=== PATIENT | female | born 2000 | race Caucasian/White ===

== ENCOUNTER → 2018-02-28 13:51 | Outpatient (CLI) | payer MEDICAID, SELFPAY ==
[2018-02-28 17:18] LABS: Chlamydia Trachomatis by PCR Negative (Negative); Neisserai gonorrhoeae by PCR Negative (Negative); Probe Check PASS; Sample Adequacy Control PASS; Specimen Processing Control PASS
[2018-02-28 18:13] LABS: Probe Check PASS; Sample Adequacy Control PASS; Specimen Processing Control PASS; Trichomonas Vag DNA by PCR Negative (Negative)
== END ==
PROVIDERS: Visit Provider Obstetrics & Gynecology
DX: Z11.3 Encounter for screening for infections with a predominantly sexual mode of transmission (principal)
CPT/HCPCS: 87491; 87591; 87661

== ENCOUNTER → 2018-03-13 15:02 | Outpatient (CLI) | payer MEDICAID, SELFPAY ==
--- NOTE | 2018-03-13 15:05 | US_ITS ---
STUDY: ULTRASOUND OF THE FEMALE PELVIS - COMPLETE REASON FOR EXAM: Female, 17 years old. Left lower quadrant pain TECHNIQUE: Transabdominal and Transvaginal TECHNICAL QUALITY: Adequate. COMPARISON: None. FINDINGS: The uterus is anteverted and is in a midline position. The uterus measures 6.4 x 4.4 x 2.5 cm. Normal uterine cervix. The endometrium measures 2 mm in thickness, and is fluid distended. There is no demonstrated endometrial mass. There is no demonstrated myometrial mass. The right ovary is non-visualized. The left ovary is visualized. The left ovary measures 2.9 x 1.6 x 1.5 cm. There is no left ovarian cyst or ovarian mass. There is no visualized left adnexal mass or complex lesion. There is normal arterial and normal venous vascularity. There is no fluid in the cul-de-sac. US/Transvaginal Non- IMPRESSION: Small amount of fluid in the endometrial canal. Otherwise, normal sonographic appearance of the uterus. Normal left ovary with normal Doppler flow. Right ovary not visualized. Electronically Signed: Srini Gill, at 19:29 EDT Tel , Service support ,
== END ==
PROVIDERS: Family Provider Nurse Practitioner Family; PCP Nurse Practitioner Family; Visit Provider Obstetrics & Gynecology
DX: R10.2 Pelvic and perineal pain (principal)
CPT/HCPCS: 76830; 93976

== ENCOUNTER 2018-06-20 07:47 | Day surgery (SDC) | payer MEDICAID, SELFPAY ==
[2018-06-20] VITALS (7 sets, daily range): BP systolic 107–122; BP diastolic 66–81; PULSE 75–102; RESP 14–16; TEMP 36.5–37.1; O2SAT 100; BMI 22.8
--- NOTE | 2018-06-20 | MISC_PTH ---
PATIENT: BRENNON GIPSON LOC: [facility] [place] U#:[id number] AGE/SX: 18/F ROOM: RE06/20/[address]: Dr. Lin Aparicio MD : [id number] BED: DIS: 06/20/2018 SPEC #: [id number] RECD: 06/20/18 14:41 STATUS: ELAINA REGail #: [id number] VARGAS: 06/20/18 00:[address]: Lin Verduzco DEPT: SURGICAL PATHOLOGY RECD BY: [place] D[place] ENTERED: 06/20/18 14:42 SP TYPE: [facility] [place] [facility] DR: Tanisha Mayes, MACHINE OPERATOR HOP PICKER-C Tissues: Peritoneum, NOS Procedures: Surgery Specimen Level IV HEADER OPERATION: Diagnostic laparoscopy, lysis of adhesions PRE-OP DIAGNOSIS: Pelvic and perineal pain TISSUE SUBMITTED: Left uterosacral peritoneal biopsy MICROSCOPIC DIAGNOSIS Left uterosacral peritoneal biopsy: Mesothelial-lined piece of dense fibroconnective tissue with focal decidual changes and focal changes suggestive of endometriosis. FRANKLIN:caron 06/21/18 MICROSCOPIC DESCRIPTION Slides are reviewed. GROSS DESCRIPTION Received in fixative is one container labeled with the patient's name and designated left uterosacral peritoneal biopsy. The specimen consists of an irregular piece of browning-pink soft tissue measuring 3 x 0.5 x 0.2 cm. The entire specimen is submitted in one cassette. / FRANKLIN:caron 06/20/18 TC:5 CPT: 74208
[2018-06-20 08:08] LABS: Internal QC Validated? YES +Cl - CLEAR BKGD; Pregnancy, Urine Negative Negative
[2018-06-20 08:22] LABS: Hemoglobin 14.3 g/dl (12.0-15.0); Mean Corp Hgb Conc 33.3 g/gl (32-36); Mean Corpuscular Hgb 29.2 pg (27.0-32.0); Mean Corpuscular Volume 87.8 fL (81-99); Platelet Count 273 K/mm3 (150-450); RBC Distribution Width CV 11.9 % (11.6-14.6); Scan Indicated on CBC? Y/N NO; White Blood Count 8.1 K/mm3 (4.4-11.0)
[2018-06-20 08:32] LABS: International Normalized Ratio 1.2; Prothrombin Time (Protime)PT. 14.9 SECONDS (11.7-14.9)
[2018-06-20 08:33] LABS: Partial Thromboplast Time 32.4 Seconds (24.1-36.2)
[2018-06-20] MEDS: Lubricating Jelly 60 GM Tube 30 GM TOPICAL (11:00)
--- NOTE | 2018-06-20 12:17 | PCM.OPRPT ---
Problem List (1) Chronic female pelvic pain Status: Acute (2) Endometriosis determined by laparoscopy Status: Acute Report of Operation Date of Procedure: 06/20/18 Pre-Operative Diagnosis: Chronic pelvic pain Post-Operative Diagnosis: Chronic pelvic pain, Endometriosis Surgery/Procedure Performed:: Diagnostic laparoscopy, peritoneal biopsy, pelvic adhesiolysis Description of Surgical Findings:: Extensive adhesions of left adnexa to sigmoid colon with blunting of left tubal fimbria and left round ligament contracture. Normal uterus and ovaries bilaterally. organic lab worker: Tanisha Castle Type of Anesthesia:: Epidural, Local Anesthesiologist: Bryan Ribeiro Specimen's removed: 1. left uterosacral/ovarian fossa peritoneum Drains: cortez - clear Estimated Blood Loss (mL): 50 mL Fluids Replaced: 1500 ml Description of Procedure: Indications: Shelia is a 18-year-old with a history of chronic pelvic pain and dyspareunia refractory to medical management with hormonal contraceptives. On counseling she opted to proceed with agnostic laparoscopy and surgical treatment of endometriosis as indicated. Risks, benefits, indications and alternatives of procedure were reviewed. Informed consent was obtained. Procedure: Patient was taken to the operating room and induced under general anesthesia and intubated. She was then placed into dorsal sodomy position and examination under anesthesia was performed. Her arms were tucked at her sides. The perineum and abdomen were then prepped and draped in sterile fashion. The patient was placed into high lithotomy weighted speculum placed to the vagina and the cervix grasped the anterior cervical lip using a single-tooth tenaculum. The uterus sounded to 7 cm. A HUMI uterine manipulator was placed. The speculum was removed. Cortez catheter was placed into the bladder. Patient was placed into low lithotomy attention turned to the abdomen. An inferior umbilical incision was made using a scalpel and Veress needle was placed with successful hanging drop test and no aspirate. The abdomen was insufflated to 15 mmHg. The Veress needle was removed and a 5 mm port was placed under laparoscopic guidance confirming entry into the abdominal cavity. A second suprapubic incision made and a 5 mm port placed at the site. The patient was placed into Trendelenburg and abdominal pelvic inspection was performed. I did observe a significant adhesion of the left pelvic sidewall including the sigmoid colon and left adnexa with obscurement of the distal to and ovary. The right tube and ovary were normal in appearance. The uterus was notably left tilted. There was some contracture of the left round ligament and there was white spicules at the left uterosacral ligament and ovarian fossa suspicious for endometriosis. I subsequently placed 5 mm right and left lower quadrant ports under transillumination. I proceeded with sharp and blunt dissection of the sigmoid colonic adhesion to the left pelvic sidewall to gain greater mobility and access to the left adnexa. This was continued until the tubal fimbria were visible and the adnexa had independent mobility from the sigmoid. The tubal fimbria were notably blunted. There was dissection of the tubal peritoneum approximately 2 cm distal to the cornua in order to gain mobility however the tubal ostia remained intact. I was able to retract the adnexa and gain access to the ovarian fossa on the left side. The left uterosacral peritoneum was grasped and sharply and bluntly dissected from the underlying tissue, peritoneal dissection extended to the ovarian fossa. There is excellent hemostasis at the site and the specimen was removed. Attention was then turned back to the prior left sigmoid adnexal dissection site there was some bleeding from the distal mesosalpinx controlled using monopolar energy and subsequently compression with significant improvement. I placed Nu-Knit at the site as well as surrounding the denuded tubal ostia more proximally. The stasis was obtained. The abdomen was desufflated and trochars were removed. The skin was closed using 4-0 Monocryl and Steri-Strips and OpSite were placed over the incisional wounds. A total of 10 cc of half percent Sensorcaine was placed for additional analgesia. The uterine manipulator and Cortez catheter were removed with the tenaculum vaginally. The tenaculum site was hemostatic. Patient was awakened, extubated and transferred to the recovery room without complication. Sponge, needle counts were correct x2. Patient tolerated procedure well. - Complications None - Admit VTE Documentation VTE Present on Admission: No VTE Mechan Device Prophylaxis: SCD's
[2018-06-20] MEDS: Bupivacaine Mpf 0.5% 30 ML VIAL (12:22)
--- NOTE | 2018-06-20 12:37 | DCINST_ITS ---
- Discharge Diagnoses Current Active Problems: Current Active and Chronic Problems Chronic female pelvic pain (Acute) Endometriosis determined by laparoscopy (Acute) Reason(s) for Visit for Discharge Instructions: Laparoscopy You will use the following diet at home:: No restrictions Your food should be the consistency of: Regular Discharge Activity: Return to Normal Activity, May not drive while taking narcotic pain medications., May Shower, - - No driving for 48-72 hours, no tub bath for 1-2 weeks May resume sexual activity in: 4 weeks Lifting Restrictions: 10-20 lb Call your doctor if you observe: Fever of 101 or Higher, Inability to urinate, Inability to have a bowel movement, Using more than one pad per hour, Shortness of breath, Chest pain, Calf discomfort, Uncontrolled pain Suture Line Care: Avoid Pulling/Pushing Remove Dressing in (days):: 1 Cleanse incision/area with: Soap & Water Allergies/Adverse Reactions: Allergies No Known Allergies Allergy (Verified 06/17/18 10:17) Medications to take at Discharge Medroxyprogesterone Acetate [Depo-Provera] 150 mg IM QMONTH 06/17/18 Venlafaxine HCl [Effexor] 37.5 mg PO DAILY 06/17/18 Docusate Sodium [Colace] 100 mg PO BID PRN PRN #60 capsule 06/20/18 Ibuprofen 600 mg PO TID PRN #30 tablet 06/20/18 Oxycodone [Oxyir] 5 mg PO Q6H PRN PRN 3 Days #12 tablet 06/20/18 The following prescriptions were given: Oxycodone [Oxyir] 5 mg PO Q6H PRN PRN 3 Days #12 tablet PRN Reason: Severe Pain (-06/05) Docusate Sodium [Colace] 100 mg PO BID PRN PRN #60 capsule PRN Reason: Constipation Ibuprofen 600 mg PO TID PRN #30 tablet PRN Reason: Pain Primary Care Physician: Tanisha Mayes NP-C [Primary Care Provider] - Test Results: Test results from this visit will be discussed in further detail at your follow- up appointment, if applicable. Please Follow Up With: Lin Toth MD When: 2 weeks
[2018-06-20] MEDS: HYDROcodone Bitartrate/Apap 5/325 Tablet PO (13:55)
== END 2018-06-20 14:48 | disposition home or self-care (01) ==
LOC: SDC 07:47 → AC 07:49
PROVIDERS: Family Provider Nurse Practitioner Family; PCP Nurse Practitioner Family; Referring Provider Obstetrics & Gynecology; Visit Provider Obstetrics & Gynecology
PROC: (CPT 49320; principal; 2018-06-20 09:25)
DX: N80.3 Endometriosis of pelvic peritoneum (principal); N73.6 Female pelvic peritoneal adhesions (postinfective); G89.29 Other chronic pain; F32.9 Major depressive disorder, single episode, unspecified; F41.9 Anxiety disorder, unspecified; Z79.899 Other long term (current) drug therapy; Z87.891 Personal history of nicotine dependence
CPT/HCPCS: 00840; 49321; 36415; 81025; 85027; 85610; 85730; 86850; 86900; 88305; J7120; J2405

== ENCOUNTER → 2018-06-25 14:01 | Outpatient (CLI) | payer MEDICAID, SELFPAY ==
[2018-06-25 15:47] LABS: Absolute Lymphocyte Count 1.51 X10^3/ul (0.83-4.51); Absolute Neutrophil Count 4.4 X10^3/uL (2.0-7.7); Basophil# 0.01 X10^3/uL; Basophil% 0.2 % (0-1); Eosinophil# 0.06 X10^3/uL; Eosinophils% 0.9 % (0-5); Hematocrit 45.9 % (37-47); Hemoglobin 15.1 g/dl (12.0-15.0); Lymphocyte # 1.51 X10^3/ul (4.0); Lymphocyte % 23.7 % (19-41); Mean Corp Hgb Conc 32.9 g/gl (32-36); Mean Corpuscular Hgb 29.3 pg (27.0-32.0); Mean Platelet Vol. 10.7 fl (6.2-12.0); Monocyte# 0.34 X10^3/uL; Monocyte% 5.3 % (0-10); Neutrophil # 4.43 X10^3/uL (2.7-7.7); Neutrophil % 69.6 % (47-70); Platelet Count 286 K/mm3 (150-450); RBC Distribution Width CV 12.5 % (11.6-14.6); RBC Distribution Width SD 40.1 fl (35.1-43.9); Red Blood Count 5.16 M/mm3 (4.2-5.4); White Blood Count 6.4 K/mm3 (4.4-11.0)
[2018-06-25 15:49] LABS: POSITIVE COUNT NO; POSITIVE DIFFERENTIAL NO; POSITIVE MORPHOLOGY NO
[2018-06-25 15:59] LABS: AST(SGOT) 10 U/L (15-37); Alanine Aminotransfer ALT/SGPT 17 U/L (13-56); Albumin, Serum 4.1 g/dL (3.2-5.0); Alkaline Phosphatase 66 U/L (45-117); Amylase 38 U/L (25-115); Anion Gap 7 (5-15); BUN 10 mg/dL (7-18); BUN/Creat Ratio 11.4 RATIO (10-20); Calcium,Total 9.2 mg/dL (8.5-10.1); Chloride 104 mmol/L (98-107); Creatinine, Serum 0.88 mg/dL (0.55-1.02); EST Glomerular Filtration Rate 87 mL/min (>60); Est Glom Filt Rate - Afr Amer 105 mL/min (>60); Glucose 81 mg/dL (74-106); Lipase 75 U/L (73-393); Protein, Total 8.1 g/dL (6.4-8.2); Sodium Level 139 mmol/L (136-145)
== END ==
PROVIDERS: Visit Provider Obstetrics & Gynecology
DX: R11.2 Nausea with vomiting, unspecified (principal)
CPT/HCPCS: 36415; 80053; 82150; 83690; 85025; 87086

== ENCOUNTER → 2018-11-27 11:08 | Outpatient (CLI) | payer MEDICAID, SELFPAY ==
[2018-06-20 08:07] VITALS: BMI 22.8
[2018-11-27 17:45] LABS: Chlamydia Trachomatis by PCR Negative (Negative); Neisserai gonorrhoeae by PCR Negative (Negative); Probe Check PASS; Sample Adequacy Control PASS; Specimen Processing Control PASS
== END ==
PROVIDERS: Visit Provider Obstetrics & Gynecology
DX: Z11.3 Encounter for screening for infections with a predominantly sexual mode of transmission (principal)
CPT/HCPCS: 87491; 87591